=== PATIENT | female | born 1965 | race Caucasian/White ===

== ENCOUNTER 2017-09-12 06:38 | Day surgery (SDC) | payer OTHER ==
[2017-09-12 07:02] VITALS: O2SAT 100
[2017-09-12] MEDS ORDERED: Propofol 10 mg/ml Inj (20 ML) ONE ×2 (08:25→08:43)
[2017-09-12 09:00] VITALS: TEMP 96.9
[2017-09-12 09:26] VITALS: BP 111/64; PULSE 59; RESP 14
== END 2017-09-12 09:40 | disposition home or self-care (01) ==
LOC: C.ENDO 06:38
PROVIDERS: ATTEND Internal Medicine Gastroenterology
DX: Z12.11 Encounter for screening for malignant neoplasm of colon (principal)
CPT/HCPCS: 45378; J2704